=== PATIENT | female | born 1945 | race Caucasian/White ===

== ENCOUNTER 2022-09-05 11:59 | Day surgery (SDC) | payer MEDICARE, BC ==
[~2022-09-05] VITALS: Ht 157.5 cm; Wt 47.7 kg
[2022-09-05 12:30] VITALS: BP 167/89
[2022-09-05] MEDS ORDERED: IBUP-1985 PO (12:57)
[2022-09-05] MEDS ORDERED: VITA-268 PO (12:58)
[2022-09-05] MEDS ORDERED: ASCO-157 PO (13:00)
[2022-09-05] MEDS ORDERED: milk thistle (13:00)
[2022-09-05] MEDS ORDERED: Red Yeast Rice (13:00)
[2022-09-05] MEDS ORDERED: Sennosides (13:01)
[2022-09-05] MEDS ORDERED: CHOL10005 PO (13:02)
[2022-09-05 13:12] LABS: BASOPHILS % (AUTO) 0.4 % (0-1); EOSINOPHILS # (AUTO) 0.1 X10'3 (0-0.9); EOSINOPHILS % (AUTO) 2.2 % (0-6); HEMATOCRIT 35.7 % (35.0-45.0); HEMOGLOBIN 11.9 g/dl (12.0-16.0); LYMPHOCYTES # (AUTO) 0.4 X10'3 (1.1-4.8); LYMPHOCYTES % (AUTO) 11.8 % (21-51); MEAN CORPUSCULAR HEMOGLOBIN 32.9 PG (27.0-31.0); MEAN CORPUSCULAR HGB CONC 33.3 g/dL (33.0-36.5); MEAN PLATELET VOLUME 7.8 FL (7.4-10.4); MONOCYTES # (AUTO) 0.3 X10'3 (0-0.9); MONOCYTES % (AUTO) 8.1 % (2-12); NEUTROPHILS # (AUTO) 2.9 X10'3 (1.8-7.7); NEUTROPHILS % (AUTO) 77.5 % (42-75); PLATELET COUNT 183 X10'3 (140-440); RED CELL DISTRIBUTION WIDTH 13.2 % (11.5-14.5); WHITE BLOOD COUNT 3.7 X10'3 (4.5-11.0)
[2022-09-05] MEDS ORDERED: midazolam 1 mg/ML 2ml injection ONE (13:33)
[2022-09-05] MEDS ORDERED: LIDOcaine 1% 30ml preserv. free vial ONE (13:33)
[2022-09-05] MEDS ORDERED: heparin sodium, porcine/PF 100unit/ml 5ML syringe ONE (13:33)
[2022-09-05] MEDS ORDERED: fentaNYL/PF 50MCG/1 ML 2ML syringe ONE (13:33)
[2022-09-05] MEDS ORDERED: normal saline 1000ml 1,000 ML IV PRN (13:35)
[2022-09-05] MEDS ORDERED: normal saline 1000ml 1,000 ML IV SCH (14:05)
[2022-09-05 14:44] VITALS: BP 196/110
[2022-09-05 15:00] VITALS: BP 202/103
[2022-09-05 15:15] VITALS: BP 185/94
== END 2022-09-05 15:50 | disposition home or self-care (01) ==
LOC: SSTAY O 11:59
PROVIDERS: ATTEND Radiology Diagnostic Radiology
DX: C20 Malignant neoplasm of rectum (principal); I10 Essential (primary) hypertension; Z79.899 Other long term (current) drug therapy; Z93.3 Colostomy status; Z90.49 Acquired absence of other specified parts of digestive tract; Z88.8 Allergy status to other drugs, medicaments and biological substances; Z79.01 Long term (current) use of anticoagulants
CPT/HCPCS: 36415; 36561; 76937; 77001; 85025; 85610; 99152; 99153; C1788; C1894; J1642; J2250; J3010; J3490; J7030; A4620